=== PATIENT | female | born 2000 | race Asian ===

== ENCOUNTER 2019-04-15 12:43 | Emergency (ER) | payer OTHER, BC, SELFPAY ==
[2019-04-15 12:55] VITALS: BP 122/77; PULSE 104; RESP 20; TEMP 36.1; O2SAT 100; BMI 23.4
[2019-04-15 13:34] LABS: Bacteria Urine None Seen; RBC Urine None Seen (0-5/HPF)
[2019-04-15 13:50] LABS: Culture Indicated Urine Cult Not Indicated; Squamous Epithelial Cell Urine 5-10 /HPF (0-5/HPF); WBC Urine 1-5/HPF (0-5/HPF)
[2019-04-15 14:16] LABS: Add Manual Diff / Slide Review NO; Basophils Absolute Auto 0 /uL (0-100); Basophils Percent Auto 0.3 % (0-2); Eosinophils Absolute Auto 100 /uL (0-450); Eosinophils Percent Auto 1.1 % (2-4); Hemoglobin 14.1 g/dL (12.0-16.0); Lymphocytes Absolute Auto 1200 /uL (1100-4500); Lymphocytes Percent Auto 12.9 % (25-40); Mean Corpuscular HGB Conc 33.4 % (30-36); Mean Corpuscular Hemoglobin 28.6 PG (26-34); Mean Corpuscular Volume 85.6 fL (80-100); Monocytes Absolute Auto 500 /uL (0-900); Monocytes Percent Auto 5.2 % (3-14); Neutrophils Absolute Auto 7500 /uL (1500-7000); Neutrophils Percent Auto 80.5 % (50-75); Platelet Count 328 X10^3/uL (150-400); Red Blood Cell Count 4.91 X10^6/uL (4.0-5.2); White Blood Cell Count 9.3 X10^3/uL (4.5-11.0)
--- NOTE | 2019-04-15 14:16 | DI.US.S_ITS ---
PROCEDURE: US OB <= 14 WEEKS FETUS INDICATIONS: PAIN, BLEEDING OUTSIDE/PRIOR DATING DATA: Last menstrual period (LMP): 03/16/19. LMP-based estimated date of delivery (JASON): 12/11/19. First dating scan (date and location): [facility], 04/15/19. Estimated date of delivery (JASON) from first dating scan: 12/15/19. TECHNIQUE: Real-time scanning was performed of the fetus and maternal pelvic organs, with image documentation. Endovaginal scanning was also performed to better visualize the fetus and maternal ovaries. COMPARISON: None. FINDINGS: Embryo: There is an apparent gestational sac seen that measures 4 mm, with an estimated gestational age of 5 weeks 1 day. Measurement variability in dating: +/- 4 weeks by LMP, +/- 7 days by mean sac diameter (use before 6 weeks gestation if crown-rump length not able to be measured), +/- 5 days by crown-rump length (up to 8 weeks 6 days gestation), +/- 7 days by crown-rump length (up to 13 weeks 6 days gestation). Maternal organs: There is a prominent simple appearing ovarian cyst that measures in measures 4.1 cm. Limited scanning through the kidneys demonstrates no hydronephrosis. IMPRESSION: Apparent intrauterine gestational sac. No pole can be seen at this time. Differential diagnosis includes a blighted ovum, however. No significant discrepancy is found between the estimated gestational age based on these images and the estimated gestational age based upon the given date of the last menstrual period. Close clinical followup, with serial beta-hCG and serial ultrasound are recommended, as clinically appropriate. There is a 4.1 cm right ovarian cyst with a simple appearance. This may be related to a corpus luteum. Dictated by: Michi Rivera M.D. on 04/15/2019 at 15:22 Approved by: Michi Rivera M.D. on 04/15/2019 at 15:25
[2019-04-15 14:28] LABS: Alanine Aminotransferase 26 IU/L (<35); Albumin 4.8 g/dL (3.5-5.0); Albumin Globulin Ratio 1.4 (1.0-2.8); Alkaline Phosphatase 62 U/L (38-126); Aspartate Aminotransferase 27 IU/L (14-36); Bilirubin Total 0.5 mg/dL (0.2-1.3); Blood Urea Nitrogen 8 mg/dL (7-17); Calcium 9.4 mg/dL (8.4-10.2); Carbon Dioxide 25 mmol/L (22-32); Chloride 101 mmol/L (98-107); Estimated Glomerular Filt Rate > 60.0 mL/min (>60); Globulin 3.5 g/dL (1.7-4.1); Glucose 96 mg/dL (70-100); HEMOLYSIS < 15 (0-50); Potassium 3.8 mmol/L (3.4-5.1); Sodium 137 mmol/L (137-145); Total Protein 8.3 g/dL (6.3-8.2)
[2019-04-15 14:45] LABS: HCG Quantitative /Beta subunit 1682.7 mIU/mL
[2019-04-15 17:26] VITALS: BP 118/61; PULSE 95; RESP 16; O2SAT 98
--- NOTE | 2019-04-16 03:09 | ED.PREGNANCY ---
[facility] - [facility] - Last Filed: 04/16/19 03:28> General Chief complaint: OB/Uterine Contractions Stated complaint: POSITIVE PREG TEST AND NOW SPOTTING Time Seen by Provider: 04/15/19 13:00 Source: patient Mode of arrival: Ambulatory Limitations: no limitations History of Present Illness HPI Narrative: This is a 18-year-old female, former smoker, who presents to ED with family member with chief complaint of vaginal spotting and abdominal discomfort. Patient states she had positive home test about a week ago. This is and Last LMP was03/06/2019 through 03/10/2019 which was normal. Patient states she had small amount of vaginal spotting when she used the restroom on a toilet which resolved since then. Reports sharp and constant lower abdominal discomfort and rates as 7 to 8/10. Patient denies urinary symptoms or diarrhea. Patient denies fever, chills, nausea or vomiting. Date of Last Menstrual Period: 03/06/19 Patient : Yes Expected Date of Delivery: 12/11/19 Related Data Home Medications Medication Instructions Recorded Confirmed No Known Home Medications 04/15/19 04/15/19 Allergies Allergy/AdvReac Type Severity Reaction Status Date / Time No Known Drug Allergies Allergy Verified 04/15/19 12:57 Review of Systems <Mike DuganSay [facility] - Last Filed: 04/16/19 03:28> Review of Systems Narrative: General: Denies fever, chills, fatigue, malaise, sweats. HEENT: Denies sinus pain, ear pain, sore throat, difficulty swallowing, dizziness. Respiratory: Denies dyspnea, cough, wheezing, hemoptysis, sputum. Cardiovascular: Denies chest pain, palpitations, orthopnea, edema. Gastrointestinal: See HPI : See HPI Musculoskeletal: Denies weakness, joint pain or bony pain. Skin: Denies rash, skin lesions, or other. Neurologic: Denies weakness, headache, numbness, change in speech, confusion, seizures, incoordination. Psychiatric: No concerning psychosocial issues. 12-point review of systems is negative except for those stated above. PMFSH - <[facility] - Last Filed: 04/16/19 03:28> Past Medical History Medical history: Reports no medical history Surgical history: Reports no surgical history BELT MAKER HELPER history: Reports No BELT MAKER HELPER History Date of Last Menstrual Period: 03/06/19 Patient : Yes Expected Date of Delivery: 12/11/19 Psychiatric history: Reports no psych history Exam <YULIANA Montelongo - Last Filed: 04/16/19 03:28> Narrative Exam Narrative: GEN: Alert, oriented x 3, well appearing and nourished, and in no acute distress. Head: Normal cephalic, atraumatic. No scalp or temporal tenderness, palpable mass or rash. EYES: Pupils are equal, round, and reactive to light and accommodation. Extraocular muscles are intact bilaterally. There is no subconjunctival hemorrhage, exudate and sclera non-icteric. ENT: Bilateral auditory canals and tympanic membranes clear. Hearing grossly intact. Nose without bleeding, purulent discharge or deviation. Facial sinuses nontender to palpate. Mucous membrane moist, no mucosal lesion. Throat without erythema, tonsillar hypertrophy or exudate. Uvula in midline, airway patent. Neck: Trachea in midline. No JVD, non-tender without lymphadenopathy. No masses or thyroid megaly. Supple, non-tender and no meningeal signs. CARDIAC: Normal regular rate and rhythm without murmurs, gallops, or rubs. No chest wall tenderness. No peripheral edema, cyanosis or pallor. Capillary refill is less than 2 seconds. RESPIRATORY: Lungs are clear to auscultate bilaterally. No cough, wheezes, rales, or rhonchi. No stridor, respiratory distress, increase work of breathing, or accessary muscle used. ABD: Abdomen soft, TTP in lower abdomen and non-distended. No guarding or rebound tenderness to palpate. Bowel sounds are normal in all 4 quadrants. There is no palpable masses or organomegaly. EXT: Full painless ROM of all extremities with no loss of sensation, strength, effusion or edema. SKIN: Warm, dry, normal color for patient. No erythema, lesions or rash over visible areas. BACK: Nontender without deformity or crepitance. No flank tenderness. NEUROLOGICAL: Alert and oriented to place, time and person. Sensation and motor function intact bilaterally. No facial droops, dysphasia. PSYCHIATRIC: Good judgement and reason, without hallucinations, abnormal affect or abnormal behaviors during the examination. Initial Vital Signs Initial Vital Signs: Vital Signs Temperature 97.0 F L 01/18/20 12:55 Pulse Rate 104 H 04/15/19 12:55 Respiratory Rate 04/15/19 12:55 Blood Pressure 122/77 04/15/19 12:55 Pulse Oximetry 100 04/15/19 12:55 <Devi Davis DO - Last Filed: 04/17/19 11:51> Initial Vital Signs Initial Vital Signs: Vital Signs Temperature 97.0 F L 04/15/19 12:55 Pulse Rate 104 H 04/15/19 12:55 Respiratory Rate 04/15/19 12:55 Blood Pressure 122/77 04/15/19 12:55 Pulse Oximetry 100 04/15/19 12:55 Scores <YULIANA Montelongo - Last Filed: 04/16/19 03:28> GCS [place] coma scale eye opening: Spontaneous [place] coma scale verbal response: Orientated [place] coma scale motor response: Obey commands [place] coma scale total score: 15 MDM - OB/Uterine Contractions <YULIANA Montelongo - Last Filed: 04/16/19 03:28> Differential Diagnosis Differential diagnosis: Likely other (Threatened AB, Spontaneous AB, UTI, ectopic , Ovarian cyst) Medical Records Attestation: I reviewed the patient's medical records. Lab Data Attestation: I reviewed the patient's lab results. Result diagrams: 04/15/19 14:07 04/15/19 14:07 Labs: Lab Results 04/15/19 04/15/19 04/15/19 Range/Units 13:18 14:07 14:07 WBC 9.3 (4.5-11.0) X10^3/uL RBC 4.91 (4.0-5.2) X10^6/uL Hgb 14.1 (12.0-16.0) g/dL Hct 42.0 (36-46) % MCV 85.6 (80-100) fL MCH 28.6 (26-34) PG MCHC 33.4 (30-36) % RDW 13.0 (11.6-14.8) % Plt Count 328 (150-400) X10^3/uL Neut % (Auto) 80.5 H (50-75) % Lymph % (Auto) 12.9 L (25-40) % Harding % (Auto) 5.2 (3-14) % Eos % (Auto) 1.1 L (2-4) % Baso % (Auto) 0.3 (0-2) % Neut # (Auto) 7500 H (1341-3694) /uL Lymph # (Auto) 1200 (4933-6501) /uL Harding # (Auto) 500 (0-900) /uL Eos # (Auto) 100 (0-450) /uL Baso # (Auto) 0 (0-100) /uL Sodium 137 (137-145) mmol/L Potassium 3.8 (3.4-5.1) mmol/L Chloride 101 (98-107) mmol/L Carbon Dioxide 25 (22-32) mmol/L BUN 8 (7-17) mg/dL Creatinine 0.50 L (0.52-1.04) mg/dL Estimated GFR > 60.0 (>60) mL/min BUN/Creatinine Ratio 16.0 (6-22) Glucose 96 (70-100) mg/dL Calcium 9.4 (8.4-10.2) mg/dL Total Bilirubin 0.5 (0.2-1.3) mg/dL AST 27 (14-36) IU/L ALT 26 (<35) IU/L Alkaline Phosphatase 62 (38-126) U/L Total Protein 8.3 H (6.3-8.2) g/dL Albumin 4.8 (3.5-5.0) g/dL Globulin 3.5 (1.7-4.1) g/dL Albumin/Globulin Ratio 1.4 (1.0-2.8) HCG, Quant 1682.7 mIU/mL Urine RBC None seen (0-5/HPF) Urine WBC 1-5/hpf (0-5/HPF) Ur Squamous Epith Cells 5-10 /hpf H (0-5/HPF) Urine Bacteria None seen (None) Ur Culture Indicated? Cult not indicated Blood Type 04/15/19 Range/Units 14:07 WBC (4.5-11.0) X10^3/uL RBC (4.0-5.2) X10^6/uL Hgb (12.0-16.0) g/dL Hct (36-46) % MCV (80-100) fL MCH (26-34) PG MCHC (30-36) % RDW (11.6-14.8) % Plt Count (150-400) X10^3/uL Neut % (Auto) (50-75) % Lymph % (Auto) (25-40) % Harding % (Auto) (3-14) % Eos % (Auto) (2-4) % Baso % (Auto) (0-2) % Neut # (Auto) (4195-6216) /uL Lymph # (Auto) (2461-0061) /uL Harding # (Auto) (0-900) /uL Eos # (Auto) (0-450) /uL Baso # (Auto) (0-100) /uL Sodium (137-145) mmol/L Potassium (3.4-5.1) mmol/L Chloride (98-107) mmol/L Carbon Dioxide (22-32) mmol/L BUN (7-17) mg/dL Creatinine (0.52-1.04) mg/dL Estimated GFR (>60) mL/min BUN/Creatinine Ratio (6-22) Glucose (70-100) mg/dL Calcium (8.4-10.2) mg/dL Total Bilirubin (0.2-1.3) mg/dL AST (14-36) IU/L ALT (<35) IU/L Alkaline Phosphatase (38-126) U/L Total Protein (6.3-8.2) g/dL Albumin (3.5-5.0) g/dL Globulin (1.7-4.1) g/dL Albumin/Globulin Ratio (1.0-2.8) HCG, Quant mIU/mL Urine RBC (0-5/HPF) Urine WBC (0-5/HPF) Ur Squamous Epith Cells (0-5/HPF) Urine Bacteria (None) Ur Culture Indicated? Blood Type A Positive Point of Care Testing Test Results Positive Urine Dip Bedside Urine Glucose Negative Bedside Urine Bilirubin - Negative Bedside Urine Ketone - Negative Urine Specific Loma 1.015 Bedside Urine Occult Blood - Negative Bedside Urine pH 6.0 Bedside Urine Protein - Negative Bedside Urine Urobilinogen - Negative Bedside Urine Nitrite - Negative Bedside Urine Leukocytes +/- 15 Esterase Imaging Data US - abdomen: Radiologist's Impression: [address] [address] Ultrasound Report Signed Patient: Franklin FooteDianelys#: [id number] : 2000Acct:[id number] Age/Sex: / FDate of Service: 04/15/19 Loc: Accession Number: [id number] Procedure: US OB <= 14 weeks fetus Ordering Provider: Mike Jiang PROCEDURE: US OB <= 14 WEEKS FETUS INDICATIONS: PAIN, BLEEDING OUTSIDE/PRIOR DATING DATA: Last menstrual period (LMP): 03/16/19. LMP-based estimated date of delivery (JASON): 12/11/19. First dating scan (date and location): [facility], 04/15/19. Estimated date of delivery (JASON) from first dating scan: 12/15/19. TECHNIQUE: Real-time scanning was performed of the fetus and maternal pelvic organs, with image documentation. Endovaginal scanning was also performed to better visualize the fetus and maternal ovaries. COMPARISON: None. FINDINGS: Embryo: There is an apparent gestational sac seen that measures 4 mm, with an estimated gestational age of 5 weeks 1 day. Measurement variability in dating: +/- 4 weeks by LMP, +/- 7 days by mean sac diameter (use before 6 weeks gestation if crown-rump length not able to be measured), +/- 5 days by crown-rump length (up to 8 weeks 6 days gestation), +/- 7 days by crown-rump length (up to 13 weeks 6 days gestation). Maternal organs: There is a prominent simple appearing ovarian cyst that measures in measures 4.1 cm. Limited scanning through the kidneys demonstrates no hydronephrosis. IMPRESSION: Apparent intrauterine gestational sac. No pole can be seen at this time. Differential diagnosis includes a blighted ovum, however. No significant discrepancy is found between the estimated gestational age based on these images and the estimated gestational age based upon the given date of the last menstrual period. Close clinical followup, with serial beta-hCG and serial ultrasound are recommended, as clinically appropriate. There is a 4.1 cm right ovarian cyst with a simple appearance. This may be related to a corpus luteum. Dictated by: Michi Rivera M.D. on 04/15/2019 at 15:22 MDM Narrative Medical decision making narrative: This is a 18 year female with and last LMP of 03/06/19 and JASON 12/11/2019 with resolved small amount of vaginal bleeding and abdominal pain. CBC with stable H&H with mildly elevated neutrophil. Unremarkable chemistry. UA with +/- Leuks without nitrites and urine squamous cell with 1-5 urine WBC. Uhcg positive. BHcg is 1682.7 today with A+ blood type. US of abdomen test shows gestational sac in IUP but no pole can be seen at this time likely due to to early of . There was 4.1 cm right simple ovarian cyst seen. Patient reports her abdominal discomfort is worse in left side at this time. Patient offered Tylenol but declined. Patient denies further vaginal spotting since last night at this time. Patient's mother and law called Dr. Abdalla' office and is planning to establish care. Advised to follow up in 2-[address] Beltran office for recheck Bhcg test to trend the number and strict return precautions were discussed with the patient and advised to start taking vitamin. Patient also advised Pelvic rest until cleared by CORPORATE DEVELOPMENT INTERN specialist. Patient verbalized understanding and agrees with the treatment plan. Work off note for 2 days provided. <Devi Davis, - Last Filed: 04/17/19 11:51> Lab Data Labs: Lab Results 04/15/19 04/15/19 04/15/19 Range/Units 13:18 14:07 14:07 WBC 9.3 (4.5-11.0) X10^3/uL RBC 4.91 (4.0-5.2) X10^6/uL Hgb 14.1 (12.0-16.0) g/dL Hct 42.0 (36-46) % MCV 85.6 (80-100) fL MCH 28.6 (26-34) PG MCHC 33.4 (30-36) % RDW 13.0 (11.6-14.8) % Plt Count 328 (150-400) X10^3/uL Neut % (Auto) 80.5 H (50-75) % Lymph % (Auto) 12.9 L (25-40) % Harding % (Auto) 5.2 (3-14) % Eos % (Auto) 1.1 L (2-4) % Baso % (Auto) 0.3 (0-2) % Neut # (Auto) 7500 H (3868-7312) /uL Lymph # (Auto) 1200 (0388-9577) /uL Harding # (Auto) 500 (0-900) /uL Eos # (Auto) 100 (0-450) /uL Baso # (Auto) 0 (0-100) /uL Sodium 137 (137-145) mmol/L Potassium 3.8 (3.4-5.1) mmol/L Chloride 101 (98-107) mmol/L Carbon Dioxide 25 (22-32) mmol/L BUN 8 (7-17) mg/dL Creatinine 0.50 L (0.52-1.04) mg/dL Estimated GFR > 60.0 (>60) mL/min BUN/Creatinine Ratio 16.0 (6-22) Glucose 96 (70-100) mg/dL Calcium 9.4 (8.4-10.2) mg/dL Total Bilirubin 0.5 (0.2-1.3) mg/dL AST 27 (14-36) IU/L ALT 26 (<35) IU/L Alkaline Phosphatase 62 (38-126) U/L Total Protein 8.3 H (6.3-8.2) g/dL Albumin 4.8 (3.5-5.0) g/dL Globulin 3.5 (1.7-4.1) g/dL Albumin/Globulin Ratio 1.4 (1.0-2.8) HCG, Quant 1682.7 mIU/mL Urine RBC None seen (0-5/HPF) Urine WBC 1-5/hpf (0-5/HPF) Ur Squamous Epith Cells 5-10 /hpf H (0-5/HPF) Urine Bacteria None seen (None) Ur Culture Indicated? Cult not indicated Blood Type 04/15/19 Range/Units 14:07 WBC (4.5-11.0) X10^3/uL RBC (4.0-5.2) X10^6/uL Hgb (12.0-16.0) g/dL Hct (36-46) % MCV (80-100) fL MCH (26-34) PG MCHC (30-36) % RDW (11.6-14.8) % Plt Count (150-400) X10^3/uL Neut % (Auto) (50-75) % Lymph % (Auto) (25-40) % Harding % (Auto) (3-14) % Eos % (Auto) (2-4) % Baso % (Auto) (0-2) % Neut # (Auto) (9696-4082) /uL Lymph # (Auto) (9749-5404) /uL Harding # (Auto) (0-900) /uL Eos # (Auto) (0-450) /uL Baso # (Auto) (0-100) /uL Sodium (137-145) mmol/L Potassium (3.4-5.1) mmol/L Chloride (98-107) mmol/L Carbon Dioxide (22-32) mmol/L BUN (7-17) mg/dL Creatinine (0.52-1.04) mg/dL Estimated GFR (>60) mL/min BUN/Creatinine Ratio (6-22) Glucose (70-100) mg/dL Calcium (8.4-10.2) mg/dL Total Bilirubin (0.2-1.3) mg/dL AST (14-36) IU/L ALT (<35) IU/L Alkaline Phosphatase (38-126) U/L Total Protein (6.3-8.2) g/dL Albumin (3.5-5.0) g/dL Globulin (1.7-4.1) g/dL Albumin/Globulin Ratio (1.0-2.8) HCG, Quant mIU/mL Urine RBC (0-5/HPF) Urine WBC (0-5/HPF) Ur Squamous Epith Cells (0-5/HPF) Urine Bacteria (None) Ur Culture Indicated? Blood Type A Positive Point of Care Testing Test Results Positive Urine Dip Bedside Urine Glucose Negative Bedside Urine Bilirubin - Negative Bedside Urine Ketone - Negative Urine Specific Loma 1.015 Bedside Urine Occult Blood - Negative Bedside Urine pH 6.0 Bedside Urine Protein - Negative Bedside Urine Urobilinogen - Negative Bedside Urine Nitrite - Negative Bedside Urine Leukocytes +/- 15 Esterase Discharge Plan Departure Patient Disposition: Home Clinical Impression: Threatened in first trimester, Ovarian cyst affecting in first trimester, antepartum Discharge Date/Time: 04/15/19 17:33 Instructions: DI for Threatened , DI for Ovarian Cyst Activity Restrictions/Additional Instructions: You have been diagnosed with [vaginal spotting in first-trimester and threatened . Urine does not appears to be having on infection. Blood tests today were unremarkable. Initial HCG level today is 1682.7 and your blood type is A positive. US test result indicates intrauterine gestational sac but no pole could be seen due to too early of . You also have 4.1 cm R ovarian simple cyst ]. What to do: *Take your medications as directed. Start taking vitamins. Pelvic rest until your seen by housing coordinator provider. *Follow up with Dr. Beltran as you are planning to and call their office on Wednesday. Beta hCG level should be re-checked in 2 days. Let them know you were seen in the ED and that we asked you to be seen in follow up. *Return to ED if you have any new, worsening, or concerning symptoms, such as [chest pain, breathing trouble, feeling like faint, unable to tolerate fluids, fever, increasing vaginal bleeding or any other concerns]. Prescriptions: No Action No Known Home Medications RF: 0 Referrals: Kash Abdalla MD [Physician] - Stand Alone Forms: Work Release Note
== END 2019-04-15 17:33 | disposition home or self-care (01) ==
PROVIDERS: Emergency Medicine; Emergency Provider Nurse Practitioner Family
DX: O34.81 Maternal care for other abnormalities of pelvic organs, first trimester (principal); N83.201 Unspecified ovarian cyst, right side; O20.0 Threatened abortion; Z3A.01 Less than 8 weeks gestation of pregnancy
CPT/HCPCS: 36415; 76801; 76817; 80053; 81003; 81015; 81025; 84702; 85025; 86900; 86901; 99283; 99284

== ENCOUNTER → 2019-06-16 14:25 | Outpatient (CLI) | payer OTHER, BC, SELFPAY ==
[2019-06-21 13:04] LABS: Sequential Screen 1st Trimeste SEE SEPARATE REPORTS
== END ==
DX: Z34.01 Encounter for supervision of normal first pregnancy, first trimester (principal); Z3A.13 13 weeks gestation of pregnancy; Z36.0 Encounter for antenatal screening for chromosomal anomalies
CPT/HCPCS: 36415; 84163; 84702

== ENCOUNTER → 2019-07-14 15:01 | Outpatient (CLI) | payer OTHER, BC, SELFPAY ==
[2019-07-19 11:07] LABS: Sequential Screen 2nd Trimeste SCREEN NEGATIVE
== END ==
PROVIDERS: Specialist
DX: Z34.82 Encounter for supervision of other normal pregnancy, second trimester (principal); Z3A.17 17 weeks gestation of pregnancy
CPT/HCPCS: 36415; 82105; 82677; 84163; 84702; 86336

== ENCOUNTER → 2019-08-04 13:40 | Outpatient (CLI) | payer OTHER, BC, SELFPAY ==
--- NOTE | 2019-08-04 13:41 | DI.US.S_ITS ---
PROCEDURE: US OB >= 14 WEEKS FETUS INDICATIONS: ANATOMY SCAN OUTSIDE/PRIOR DATING DATA: Last menstrual period (LMP): 03/16/19. LMP-based estimated date of delivery (JASON): 12/11/19. First dating scan (date and location): [facility], 04/15/19. Estimated date of delivery (JASON) from first dating scan: 12/15/19. TECHNIQUE: Real-time scanning was performed of the fetus, with image documentation and biometric measurements. COMPARISON: [facility], OB >= 14 WEEKS FETUS, 07/14/2019, 14:47. [facility], OB <= 14 WEEKS FETUS, 06/16/2019, 14:07. [facility], OB <= 14 WEEKS FETUS, 06/16/2019, 9:28. [facility], OB <= 14 WEEKS FETUS, 05/15/2019, 16:29. [facility] OB <= 14 WEEKS FETUS, 04/24/2019, 16:08. [facility], US OB <= 14 WEEKS FETUS, 04/15/2019, 15:44. FINDINGS: General: A single live intrauterine gestation is present. Presentation: Cephalic. Placenta: Placental position is anterior, without previa. Amniotic fluid index: 13.3 cm, normal range is 5-24 cm. heart rate: 149 beats per minute. Maternal cervical canal: 3.6 cm long. Normal lower limit is 2.5 cm. biometrics: Biparietal diameter: 5.1 cm equals 21 weeks 3 days Head circumference: 18.4 cm equals 20 weeks 6 days Abdominal circumference: 16 cm equals 21 weeks 1 day Femur length: 3.4 cm equals 20 weeks 6 days Estimated gestational age from initial scan: 21 weeks 0 days Composite gestational age from present scan: 21 weeks 1 day Estimated weight and percentile: 390 g, 55th percentile Measurement variability for biometric dating: +/- 7 days from 14 weeks to 15 weeks 6 days gestation, +/- 10 days from 16 weeks to 21 weeks 6 days gestation, +/- 2 weeks from 22 weeks to 27 weeks 6 days gestation, +/- 3 weeks for 28 weeks gestation or later. weight reference: 4500 g or EFW >90/95% is considered macrosomia or large for gestational age. EFW <10% is small for gestational age. EFW 5% or less is considered intra-uterine growth restriction. Anatomic survey: Neuro: Ventricles are non-dilated at less than 10 mm. Cisterna magna is normal at 3-11 mm. Cerebellum is normal in size and morphology. Nuchal skin fold: Normal at less than 6 mm between 14-21 weeks gestational age. Face: Nose and lips, facial profile are normal. Spine: No evidence for spina bifida. Heart: 4-chambered heart is present, with normal ventricular outflow tracts. Diaphragm: Diaphragm is intact. Stomach: Left-sided stomach is present. Kidneys: No hydronephrosis. Normal is less than 5 mm in 2nd trimester, less than 7 mm in 3rd trimester. Cord: 3-vessel cord has orthotopic insertion. Bladder: Normal in size. Extremities: All 4 extremities identified. IMPRESSION: Normal interval growth when compared to the prior ultrasound examination. No anatomic abnormalities are identified. Dictated by: Michi Rivera M.D. on 08/04/2019 at 15:18 Approved by: Michi Rivera M.D. on 08/04/2019 at 15:20
== END ==
PROVIDERS: Referring Provider Specialist; Visit Provider Specialist
DX: Z34.02 Encounter for supervision of normal first pregnancy, second trimester (principal); Z3A.21 21 weeks gestation of pregnancy
CPT/HCPCS: 76811

== ENCOUNTER → 2019-08-30 16:34 | Outpatient (CLI) | payer OTHER, BC, SELFPAY ==
[2019-08-30 17:22] LABS: Appearance Urine UA SL CLOUDY; Bilirubin Urine UA NEGATIVE (NEGATIVE); Color Urine UA YELLOW; Glucose Urine UA NEGATIVE (Negative); Ketones Urine UA NEGATIVE (NEGATIVE); Leukocyte Esterase Urine UA TRACE (NEGATIVE); Nitrite Urine UA NEGATIVE (Negative); Occult Blood Urine UA NEGATIVE (Negative); Protein Urine UA NEGATIVE (Negative); Urobilinogen Urine UA 0.2 E.U./dL (0.2)
[2019-08-30 17:28] LABS: Add Manual Diff / Slide Review NO; Basophils Absolute Auto 0 /uL (0-100); Basophils Percent Auto 0.3 % (0-2); Eosinophils Absolute Auto 100 /uL (0-450); Eosinophils Percent Auto 1.1 % (2-4); Hematocrit 33.9 % (36-46); Hemoglobin 11.8 g/dL (12.0-16.0); Lymphocytes Absolute Auto 1800 /uL (1100-4500); Lymphocytes Percent Auto 20.5 % (25-40); Mean Corpuscular HGB Conc 34.7 % (30-36); Mean Corpuscular Hemoglobin 29.7 PG (26-34); Mean Corpuscular Volume 85.4 fL (80-100); Monocytes Absolute Auto 500 /uL (0-900); Neutrophils Absolute Auto 6300 /uL (1500-7000); Neutrophils Percent Auto 72.1 % (50-75); Platelet Count 250 X10^3/uL (150-400); Red Blood Cell Count 3.97 X10^6/uL (4.0-5.2); Red Cell Distribution Width 13.3 % (11.6-14.8); White Blood Cell Count 8.7 X10^3/uL (4.5-11.0)
[2019-08-30 17:33] LABS: Hemoglobin A1C% w Est Avg Glu 5.4 % (4.0-6.0)
[2019-08-30 18:03] LABS: Bacteria Urine Occasional (0-1); RBC Urine 0-1/HPF (0-5/HPF); WBC Urine 0-1/HPF (0-5/HPF)
[2019-08-30 18:04] LABS: Urine Comments CULTURE ORDERED
[2019-08-30 18:34] LABS: Glucose 111 mg/dL (70-100)
[2019-08-31 15:07] LABS: Urine N gonorrhoeae NOT DETECTED
[2019-08-31 15:10] LABS: Urine Chlamydia NOT DETECTED
[2019-08-31 16:14] LABS: RPR Screen Non Reactive (Non Reactive); Varicella IgG Antibody >4000 index (Immune >165)
[2019-08-31 16:40] LABS: Hepatitis B Surface Antigen NEGATIVE s/c (NEGATIVE)
[2019-08-31 16:55] LABS: HIV 1 & 2 Ab/Ag 4th Gen Combo NEGATIVE (NEGATIVE); Hep C Virus Ab w/Reflex Quant NEGATIVE s/c (NEGATIVE)
== END ==
PROVIDERS: Referring Provider Specialist; Visit Provider Specialist
DX: Z34.02 Encounter for supervision of normal first pregnancy, second trimester (principal)
CPT/HCPCS: 36415; 80055; 81003; 81015; 82947; 83036; 86787; 86803; 86850; 86900; 86901; 87077; 87086; 87389; 87491; 87591

== ENCOUNTER → 2019-09-08 11:36 | Outpatient (CLI) | payer OTHER, BC, SELFPAY ==
[2019-09-08 13:48] LABS: Hematocrit 35.2 % (36-46); Hemoglobin 11.8 g/dL (12.0-16.0)
[2019-09-08 14:47] LABS: GTT (PREG) 1 Hour PP 50gm Dose 181 mg/dL (76-139)
== END ==
PROVIDERS: Referring Provider Specialist; Visit Provider Specialist
DX: Z34.02 Encounter for supervision of normal first pregnancy, second trimester (principal)
CPT/HCPCS: 36415; 82950; 85014; 85018

== ENCOUNTER → 2019-10-13 07:44 | Outpatient (CLI) | payer OTHER, BC, SELFPAY ==
[2019-10-13 10:44] LABS: Glucose Fasting Gestational 75 mg/dL (76-95)
[2019-10-13 10:48] LABS: Glucose 1 Hour Gest 169 mg/dL (76-180)
[2019-10-13 11:26] LABS: Glucose 2 Hour Gest 157 mg/dL (76-155)
[2019-10-13 11:27] LABS: Glucose Tol Interp,Gestational INTERPRETATION
[2019-10-13 12:30] LABS: Glucose 3 Hour Gest 127 mg/dL (76-140)
== END ==
PROVIDERS: PCP Specialist; Referring Provider Specialist; Visit Provider Specialist
DX: O99.810 Abnormal glucose complicating pregnancy (principal)
CPT/HCPCS: 36415; 82951; 82952

== ENCOUNTER 2019-11-23 10:57 | Outpatient (CLI) | payer OTHER, MEDICAID, SELFPAY ==
--- NOTE | 2019-11-23 12:24 | PM.OBTRLD ---
Visit Information Visit Information Date of evaluation: 11/23/19 Primary OB Provider: Lara Chairez Reason for Evaluation: Yes rule out labor [facility] Medical History (Updated 11/23/19 @ 12:25 by Lara Chairez MD) Asthma (Acute) Food poisoning (Acute ~2014) Ovarian cyst (Acute ~04/15/19) Surgical History (Updated 05/15/19 @ 17:46 by Palmira Butler MD) No history of previous surgery (Acute) Family History Mother No known health problems Father Heavy smoker Grandmother Unknown whether patient has any health problems Grandfather Hypertension Alcoholic Grandmother Leukemia Grandfather No problems noted. Social History marital status: unmarried,living together household members: significant other and family pets and animals: Yes (X 2 dogs) education level: high school occupational status: employed current occupational exposures/hazards: No special gustavo needs: No Smoking Status: Former smoker Tobacco: How many years used: 1 second hand exposure: Yes (co-workers at work) alcohol intake: former substance use type: does not use Evaluation Evaluation Baseline heart rate: 140 Variability: Moderate (11-25) monitor accelerations: Present monitor decelerations: Absent Contraction Frequency (minutes): 7 Uterine Contraction Intensity: Moderate Category of Tracing: Reactive Cervical dilation (cm): 0 Cervical effacement (%): 0 station: -4 Diagnosis, Plan/Disposition Final Diagnosis (1) False labor: Status: Acute Plan/Disposition Plan: Precautions were reviewed for return OB Disposition: home
== END 2019-11-23 12:31 | disposition home or self-care (01) ==
LOC: LABOR 12:30 → OB 11-24 12:18
PROVIDERS: PCP Specialist; Referring Provider Specialist; Visit Provider Specialist
DX: O47.9 False labor, unspecified (principal)
CPT/HCPCS: 59025; G0378; G0379

== ENCOUNTER → 2019-11-24 16:35 | Outpatient (CLI) | payer OTHER, MEDICAID, SELFPAY ==
[2019-11-24 20:50] LABS: Strep Grp B PCR NEG for Grp B Strep
== END ==
PROVIDERS: PCP Specialist; Visit Provider Specialist
DX: Z34.83 Encounter for supervision of other normal pregnancy, third trimester (principal); Z3A.36 36 weeks gestation of pregnancy
CPT/HCPCS: 87653

== ENCOUNTER 2019-11-25 05:15 | Inpatient (IN) | payer OTHER, BC, MEDICAID, SELFPAY ==
[2019-11-25] MEDS: LACTATED RINGERS 1,000 ML 100 ML IV ×3 (08:00→14:52)
[2019-11-25 08:14] LABS: Add Manual Diff / Slide Review NO; Basophils Absolute Auto 0 /uL (0-100); Basophils Percent Auto 0.4 % (0-2); Eosinophils Absolute Auto 0 /uL (0-450); Eosinophils Percent Auto 0.3 % (2-4); Hematocrit 37.5 % (36-46); Hemoglobin 12.3 g/dL (12.0-16.0); Lymphocytes Absolute Auto 1200 /uL (1100-4500); Lymphocytes Percent Auto 11.5 % (25-40); Mean Corpuscular HGB Conc 32.8 % (30-36); Mean Corpuscular Volume 82.1 fL (80-100); Monocytes Absolute Auto 500 /uL (0-900); Monocytes Percent Auto 4.9 % (3-14); Neutrophils Absolute Auto 8900 /uL (1500-7000); Neutrophils Percent Auto 82.9 % (50-75); Platelet Count 286 X10^3/uL (150-400); Red Blood Cell Count 4.56 X10^6/uL (4.0-5.2); Red Cell Distribution Width 13.8 % (11.6-14.8); White Blood Cell Count 10.8 X10^3/uL (4.5-11.0)
[2019-11-25] MEDS: FENT 2MCG/ML BUPIV 0.125% EPI 200 MCG/100 ML PLAST..BAG 10 MCG EPIDURAL (08:40)
--- NOTE | 2019-11-25 08:58 | PM.OBHP.1 ---
OB HPI Date/Time Date of admission: 11/25/19 Date Patient Seen: 11/25/19 Time Patient Seen: 08:58 History of Present Condition Chief complaint: EVALUATION OF LABOR : 1 Para: 0 Estimated Date of Delivery: 12/16/19 Estimated Gestational Age (weeks): 37 Narrative: Yvon Foote is a 19 year old female admitted in active labor History of Present care: good care, initiated at week # (6), number of visits (10) and pounds weight gain (15) Dating criteria: based on 1st trimester US only Ultrasounds: normal mid trimester US Obstetrical complications: gestational diabetes (Diet-controlled, abnormal 1 hour with 1 abnormal value on 3 hour glucose tolerance test, thw 2 hour was 157) Medical complications: none Preadmission Labs Blood type: A (+) positive -: Antibody screen: negative, GBS status: negative, HBsAG: negative, HIV: negative and RPR/VDLR: negative -: Chlamydia screen: not detected and Gonorrhea screen: not detected -: Rubella: immune and Varicella: immune HCAB: negative Sequential screen: Normal 1 hr GTT: 181 3 hr GTT: 1 hr (169), 2 hr (157) and 3 hr (127) Fasting blood glucose: 75 Evaluation Evaluation Baseline heart rate: 150 Variability: Moderate (11-25) monitor accelerations: Present monitor decelerations: Absent Contraction Frequency (minutes): 4 Uterine Contraction Intensity: Strong/Firm Category of Tracing: Reactive Cervical dilation (cm): 6 Cervical effacement (%): 100 station: -1 Laboratory results: Laboratory Tests 11/25/19 08:00 WBC 10.8 RBC 4.56 Hgb 12.3 Hct 37.5 MCV 82.1 MCH 27.0 MCHC 32.8 RDW 13.8 Plt Count 286 Neut % (Auto) 82.9 H Lymph % (Auto) 11.5 L [place] % (Auto) 4.9 Eos % (Auto) 0.3 L Baso % (Auto) 0.4 Neut # (Auto) 8900 H Lymph # (Auto) 1200 [place] # (Auto) 500 Eos # (Auto) 0 Baso # (Auto) 0 PFSH Medical History (Updated 11/23/19 @ 12:25 by Lara Chairez MD) Asthma (Acute) Food poisoning (Acute ~2014) Ovarian cyst (Acute ~04/15/19) Surgical History (Updated 05/15/19 @ 17:46 by Palmira Butler MD) No history of previous surgery (Acute) Family History Mother No known health problems Father Heavy smoker Grandmother Unknown whether patient has any health problems Grandfather Hypertension Alcoholic Grandmother Leukemia Grandfather No problems noted. Social History marital status: unmarried,living together household members: significant other and family pets and animals: Yes (X 2 dogs) education level: high school occupational status: employed current occupational exposures/hazards: No special gustavo needs: No Smoking Status: Former smoker Tobacco: How many years used: 1 second hand exposure: Yes (co-workers at work) alcohol intake: former substance use type: does not use Meds Home Medications and Allergies Home Medications Medication Instructions Recorded Confirmed Type prenat.vits,whit,yvj-vqcl-srjft 1 tab PO DAILY 05/05/19 11/24/19 History Double Electric breast Pump and #1 each 07/28/19 11/24/19 Rx Supplies Allergies Allergy/AdvReac Type Severity Reaction Status Date / Time No Known Drug Allergies Allergy Verified 11/24/19 16:10 Review of Systems Review of Systems Narrative: Patient with bloody show but no leakage of fluid. No headaches, scotomata, epigastric pain. Good movement. ROS: Yes All systems reviewed with the patient and are negative except as otherwise documented Exam Vital Signs (past 8 hours): Blood pressure 137/92, pulse of 131, temperature 36.3? Narrative Exam Narrative: HEENT exam within normal limits. Lungs are clear to auscultation percussion. Heart is regular rate and rhythm no S3-S4 or murmurs. Abdomen is soft, nontender. Fetus is vertex. Extremities without edema and nontender Objective Labs Result Diagrams: 11/25/19 08:00 Labs: Laboratory Results - last 24 hr 11/25/19 08:00 WBC 10.8 RBC 4.56 Hgb 12.3 Hct 37.5 MCV 82.1 MCH 27.0 MCHC 32.8 RDW 13.8 Plt Count 286 Neut % (Auto) 82.9 H Lymph % (Auto) 11.5 L [place] % (Auto) 4.9 Eos % (Auto) 0.3 L Baso % (Auto) 0.4 Neut # (Auto) 8900 H Lymph # (Auto) 1200 [place] # (Auto) 500 Eos # (Auto) 0 Baso # (Auto) 0 Assessment and Plan Assessment and Plan Assessment and Plan narrative: 37 week gestation in active labor. Patient just received an epidural for pain control. Anticipate vaginal delivery.
[2019-11-25 09:14] LABS: COVID19 -Nasal RAPID Negative (Negative)
[2019-11-25 10:18] VITALS: BP 130/74
--- NOTE | 2019-11-25 13:38 | PM.OBPNLAB ---
Date/Time Date Patient Seen: 11/25/19 Time Patient Seen: 13:38 Pain Control Pain control: epidural Pelvic Exam Dilation (cm): 7 Effacement (%): 100 station: -1 Amniotic membrane status: Ruptured Comments: After informed consent, AROM performed with production of clear fluid. Contractions Contraction intensity: Strong/Firm Status status: Category l Heart Rate Baseline: 150 Monitor Accelerations: Present Monitor Decelerations: Absent Monitor Variability: Moderate Assessment and Plan Comments: 19yo at 37w0d who presented in active labor. GBS negative, Rh positive. AROM performed with production of clear fluid. - Expectant management, anticipate - Epidural in place for pain control - GBS negative, no prophylaxis - FHT reassuring
[2019-11-25] MEDS: OXYTOCIN 10 UNIT/ML VIAL 20 UNIT (16:57)
[2019-11-25] MEDS: LIDOCAINE 1% 20 ML (17:00)
[2019-11-25] MEDS: miSOPROStoL 200 MCG TABLET 1000 MCG PR (17:15)
--- NOTE | 2019-11-25 17:30 | PM.OBPRVD ---
Labor & Delivery Delivery date: 11/25/19 Estimated blood loss (mL): 200 Anesthesia type: Epidural Complications: None Narrative: PROCEDURE: at 37w0d presented in active labor and was admitted to Labor and Delivery. The patient progressed through the 1st stage over 17 hours. Pain was controlled with an epidural. AROM was performed with production of clear fluid. The patient progressed through the 2nd stage over 2 hours and delivered a viable male infant with APGARs 9/9 at 16:55 via without complications. The baby was delivered to maternal abdomen, and cord cut and clamped after it stopped pulsating. The perineum and vagina were inspected with 1st degree perineal laceration repaired with 3-O Chromic for hemostasis. PREPROCEDURE DIAGNOSIS: Intrauterine at 37w0d GBS negative RH positive POSTPROCEDURE DIAGNOSIS: Intrauterine at 37w0d, delivered Same as preprocedure PROCEDURE: Spontaneous vaginal delivery INDUCTION: No LABOR AUGMENTATION: AROM ROM APPEARANCE: Clear BABY A DELIVERY TIME: 16:55 BABY A OUTCOME: Viable BABY A SEX: Male BABY A WEIGHT: 7lb2.1oz BABY A PRESENTATION: Vertex BABY A POSITION: OA BABY A NUCHAL CORD: None BABY A # CORD VESSELS: 3 PLACENTA DELIVERY TIME: 16:58 PLACENTAL DELIVERY TYPE: Spontaneous PLACENTA APPEARANCE: Intact EBL: 200 Baby 1: score (1 min): 9 score (5 min): 9 Plan for aftercare: Normal care
[2019-11-25] MEDS: IBUPROFEN 600 MG TABLET PO (19:38)
[2019-11-25] MEDS: DERMOPLAST SPRAY 20% 60 ML 1 SPRAY TOP (19:38)
[2019-11-25] MEDS: ACETAMINOPHEN 325 MG TABLET 650 MG PO (19:39)
[2019-11-26] MEDS: ACETAMINOPHEN 325 MG TABLET 650 MG PO (06:54)
[2019-11-26] MEDS: LANOLIN OINT 7 GM 1 APPLIC TOP (09:56)
[2019-11-26] MEDS: PRENATAL VIT,CALC/IRON/FOLIC 1 TABLET 1 TAB PO (09:56)
[2019-11-26] MEDS: DOCUSATE 100 MG CAPSULE PO (09:57)
--- NOTE | 2019-11-26 10:49 | PM.OBDS.1 ---
Discharge Providers Provider Date of admission: 11/25/19 05:15 Discharge Date: 11/26/19 Primary care physician: Lara Chairez MD Consults: 11/26/19 17:29 Consult to Veterinary Radiologist Routine Comment: Discharge provider: Sally Herrera MD Summary Hospital Course Date Patient Seen: 11/26/19 Time Patient Seen: 10:00 Procedures: Spontaneous vaginal delivery Hospital Course: The patient presented in active labor. She received an epidural for pain control. AROM was performed with clear fluid. She progressed to complete had a spontaneous vaginal delivery of a viable baby boy at 4:55 p.m. on 11/25/2019 without complications. A first-degree perineal laceration was then repaired. The patient tolerated delivery well. , there were no complications. At the time of discharge she was voiding, ambulating, and passing flatus slight difficulty. Her bleeding was well controlled. She was breast-feeding with good latch. Her pain was adequately controlled. She will follow-up with Dr. Chairez her primary OB in 6 weeks for her check. She desires Nexplanon for contraception. Peripartum Data Delivery Method: Natural Vaginal Laceration Description: Perineal - 1st Degree Episiotomy description: None Procedures: Spontaneous vaginal delivery complications: none 1: Gender: Male Disposition of : home Time Spent with Patient Time attestation: Total time spent providing and/or coordinating discharge services: Objective Labs Result Diagrams: 11/25/19 08:00 Exam Narrative Exam Narrative: General: No acute distress, sitting comfortably on bed, appears well CV: Regular rate and rhythm, no murmurs Respiratory: Clear to auscultation bilaterally Abdomen: Soft, slightly distended but not tympanic, normoactive bowel sounds, fundus firm and well below umbilicus Extremities: Trace edema Discharge Plan Discharge Plan Patient Disposition: Home Discharge orders & Medications Prescriptions: New acetaminophen 325 mg Tablet 650 mg PO Q6HR PRN (Reason: Pain, Mild (1-3)) Qty: 30 RF: 0 Dermoplast (with menthol) 20-0.5 % Aerosol 1 spray topical Q1HR PRN (Reason: perineal pain) Qty: 56 RF: 0 docusate sodium [DOK] 100 mg Capsule 100 mg PO DAILY Qty: 30 RF: 0 ibuprofen 600 mg Tablet 600 mg PO Q6HR PRN (Reason: Pain, Mild (1-3)) Qty: 30 RF: 0 Vqu-L-Yaxboe Cream 1 applic topical PRN PRN (Reason: Tenderness) Qty: 28 RF: 0 Continued (DME) Double Electric breast Pump and Supplies See Rx Instructions .ROUTE .MEDSUPPLY Qty: 1 RF: 0 prenat.vits,whit,dkb-aqll-[id number] Tablet 1 tab PO DAILY RF: 0 Follow up/Referrals: Lara Chairez MD [Primary Care Provider] - 6 Weeks Diet/Activity/Treatments Diet: Diet as Tolerated and Regular Visit Report/Discharge Packet Instructions: DI for Labor and Delivery, Vaginal Visit Report Forms: Patient Portal/API, Stroke Signs & Symptoms Discharge Data Primary Care Provider: Lara Chairez Attending Provider: Sally Herrera Admit Date/Time: 11/25/19 05:15
[2019-11-26 16:52] VITALS: BP 130/74; PULSE 86; RESP 18; TEMP 36.9
== END 2019-11-26 16:30 | disposition home or self-care (01) | DRG 560 ==
PROVIDERS: Admitting Provider Family Medicine; PCP Specialist; Referring Provider Family Medicine; Visit Provider Family Medicine
DX: O24.420 Gestational diabetes mellitus in childbirth, diet controlled (principal); O70.0 First degree perineal laceration during delivery; Z3A.37 37 weeks gestation of pregnancy; Z37.0 Single live birth; O60.14X0 Preterm labor third trimester with preterm delivery third trimester, not applicable or unspecified; Z11.59 Encounter for screening for other viral diseases
CPT/HCPCS: 01967; 59025; 59050; 59400; 59409; 85025; 86850; 86900; 86901; 87635; 87653; G0378; G0379; J2590; S0191

== ENCOUNTER → 2022-05-11 10:42 | Outpatient (CLI) | payer OTHER, MEDICAID, SELFPAY ==
[2022-05-11 11:51] LABS: Hematocrit 40.1 % (36-46); Hemoglobin 13.5 g/dL (12.0-16.0); Mean Corpuscular HGB Conc 33.6 % (30-36); Mean Corpuscular Hemoglobin 28.5 PG (26-34); Mean Corpuscular Volume 84.9 fL (80-100); Red Blood Cell Count 4.73 X10^6/uL (4.0-5.2); Red Cell Distribution Width 13.6 % (11.6-14.8); White Blood Cell Count 7.8 X10^3/uL (4.5-11.0)
[2022-05-11 11:54] LABS: Add Manual Diff / Slide Review YES
[2022-05-11 12:20] LABS: Neutrophils Absolute Manual 4212 /uL (3000-5900); Total Cells Counted 100
[2022-05-11 12:22] LABS: RBC Morphology Normal Morphology
[2022-05-11 12:23] LABS: Platelet Count 246 X10^3/uL (150-400)
[2022-05-11 12:41] LABS: TSH w/ Reflex to FT4 1.18 uIU/mL (0.47-4.68)
== END ==
PROVIDERS: Referring Provider Physician Assistant Medical; Visit Provider Physician Assistant Medical
DX: E04.9 Nontoxic goiter, unspecified (principal); F41.9 Anxiety disorder, unspecified; R53.83 Other fatigue
CPT/HCPCS: 36415; 84443; 85007; 85025